=== PATIENT | male | born 1945 | race Caucasian/White ===

== ENCOUNTER → 2017-09-27 09:50 | Outpatient (CLI) | payer MEDICARE, OTHER, SELFPAY ==
[2017-09-27 11:32] LABS: Cholesterol 152 mg/dL (140-199); HDL Cholesterol 64 mg/dL (40-60); LDL Cholesterol Calculated 79 mg/dL (<100); Triglycerides 47 mg/dL (35-150)
== END ==
PROVIDERS: PCP Internal Medicine; Visit Provider Internal Medicine
DX: K21.9 Gastro-esophageal reflux disease without esophagitis (principal); R97.20 Elevated prostate specific antigen [PSA]; G47.33 Obstructive sleep apnea (adult) (pediatric)
CPT/HCPCS: 36415; 80061; 84153

== ENCOUNTER → 2018-07-31 17:30 | Outpatient (CLI) | payer MEDICARE, OTHER, SELFPAY ==
[2018-07-31 18:32] LABS: Hematocrit 46.9 % (41-53); Hemoglobin 15.5 g/dL (13.5-17.5); Mean Corpuscular HGB Conc 33.1 % (30-36); Mean Corpuscular Hemoglobin 29.3 PG (26-34); Mean Corpuscular Volume 88.5 fL (80-100); Platelet Count 206 X10^3/uL (150-400); Red Blood Cell Count 5.31 X10^6/uL (4.5-5.9); Red Cell Distribution Width 14.3 % (11.6-14.8); White Blood Cell Count 7.4 X10^3/uL (4.5-11.0)
[2018-07-31 19:39] LABS: Prostate Specific Antigen 5.27 ng/mL (0.10-4.00)
[2018-08-02 15:09] LABS: Alanine Aminotransferase 50 IU/L (21-72); Albumin 4.3 g/dL (3.5-5.0); Albumin Globulin Ratio 1.5 (1.0-2.8); Alkaline Phosphatase 67 U/L (38-126); Aspartate Aminotransferase 45 IU/L (17-59); BUN Creatinine Ratio 23.8 (6-22); Bilirubin Total 1.6 mg/dL (0.2-1.3); Blood Urea Nitrogen 19 mg/dL (9-20); Calcium 9.5 mg/dL (8.4-10.2); Carbon Dioxide 18 mmol/L (22-32); Chloride 108 mmol/L (98-107); Estimated Glomerular Filt Rate > 60.0 mL/min (>60); Globulin 2.9 g/dL (1.7-4.1); Glucose 86 mg/dL (80-110); HEMOLYSIS < 15 (0-50); Potassium 4.4 mmol/L (3.4-5.1); Sodium 139 mmol/L (137-145); Total Protein 7.2 g/dL (6.3-8.2)
== END ==
PROVIDERS: PCP Internal Medicine; Visit Provider Internal Medicine
DX: K21.9 Gastro-esophageal reflux disease without esophagitis (principal); M19.021 Primary osteoarthritis, right elbow; R97.20 Elevated prostate specific antigen [PSA]
CPT/HCPCS: 36415; 80053; 84153; 85027

== ENCOUNTER 2018-09-08 10:19 | Emergency (ER) | payer MEDICARE, OTHER, SELFPAY ==
[2018-09-08 11:02] VITALS: BP 176/92; PULSE 52; RESP 24; TEMP 36.6; O2SAT 100; BMI 293.7
[2018-09-08 11:24] LABS: Add Manual Diff / Slide Review NO; Basophils Absolute Auto 0 /uL (0-100); Basophils Percent Auto 0.4 % (0-2); Eosinophils Absolute Auto 100 /uL (0-450); Eosinophils Percent Auto 0.7 % (2-4); Hematocrit 49.3 % (41-53); Hemoglobin 16.6 g/dL (13.5-17.5); Lymphocytes Absolute Auto 1200 /uL (1100-4500); Lymphocytes Percent Auto 9.1 % (25-40); Mean Corpuscular HGB Conc 33.6 % (30-36); Mean Corpuscular Hemoglobin 29.7 PG (26-34); Mean Corpuscular Volume 88.3 fL (80-100); Monocytes Absolute Auto 700 /uL (0-900); Monocytes Percent Auto 5.2 % (3-14); Neutrophils Absolute Auto 11100 /uL (1500-7000); Neutrophils Percent Auto 84.6 % (50-75); Platelet Count 228 X10^3/uL (150-400); Red Blood Cell Count 5.59 X10^6/uL (4.5-5.9); Red Cell Distribution Width 14.3 % (11.6-14.8); White Blood Cell Count 13.1 X10^3/uL (4.5-11.0)
[2018-09-08 11:29] LABS: Bacteria Urine None Seen; RBC Urine None Seen (0-5/HPF); WBC Urine None Seen (0-5/HPF)
[2018-09-08 11:30] LABS: Alanine Aminotransferase 40 IU/L (21-72); Albumin 4.5 g/dL (3.5-5.0); Albumin Globulin Ratio 1.4 (1.0-2.8); Alkaline Phosphatase 81 U/L (38-126); Aspartate Aminotransferase 34 IU/L (17-59); BUN Creatinine Ratio 31.4 (6-22); Bilirubin Total 1.4 mg/dL (0.2-1.3); Blood Urea Nitrogen 22 mg/dL (9-20); Calcium 9.5 mg/dL (8.4-10.2); Carbon Dioxide 24 mmol/L (22-32); Chloride 104 mmol/L (98-107); Estimated Glomerular Filt Rate > 60.0 mL/min (>60); Globulin 3.3 g/dL (1.7-4.1); Glucose 148 mg/dL (80-110); HEMOLYSIS < 15 (0-50); Lipase 229 U/L (23-300); Potassium 4.9 mmol/L (3.4-5.1); Sodium 138 mmol/L (137-145); Total Protein 7.8 g/dL (6.3-8.2)
[2018-09-08 11:31] LABS: Appearance Urine UA CLOUDY; Bilirubin Urine UA NEGATIVE (NEGATIVE); Color Urine UA YELLOW; Glucose Urine UA NEGATIVE (Negative); Ketones Urine UA TRACE (NEGATIVE); Leukocyte Esterase Urine UA NEGATIVE (NEGATIVE); Nitrite Urine UA NEGATIVE (Negative); Occult Blood Urine UA NEGATIVE (Negative); Protein Urine UA NEGATIVE (Negative); Specific Gravity Urine UA 1.025 (1.000-1.035); Urobilinogen Urine UA 0.2 E.U./dL (0.2); pH Urine UA 7.5 (4.5-8.0)
[2018-09-08 11:43] LABS: Amorphous Sediment Urine 3+; Culture Indicated Urine Cult Not Indicated
--- NOTE | 2018-09-08 12:16 | DI.US.S_ITS ---
PROCEDURE: US ABDOMEN LIMITED INDICATIONS: LEFT GROIN PAIN TECHNIQUE: Real-time focused scanning was performed of the abdomen, with image documentation. COMPARISON: None. FINDINGS: Left inguinal hernia measuring 52 x 9 x 17 mm is present, containing a bowel loop. The hernia spontaneously reduces. IMPRESSION: Reducible bowel containing left inguinal hernia. Dictated by: Ramya Stroud M.D. on 09/08/2018 at 13:46 Approved by: Ramya Stroud M.D. on 09/08/2018 at 13:47
[2018-09-08] MEDS: SODIUM CHLORIDE 0.9% 1,000 ML 1000 ML IV (12:23)
[2018-09-08] MEDS: KETOROLAC 60 MG/2 ML VIAL 15 MG IV (12:26)
[2018-09-08] MEDS: ONDANSETRON 4 MG/2 ML INJ IV (12:26)
--- NOTE | 2018-09-08 12:54 | ED.ABDPAIN ---
HPI - Abdominal Pain <ANDRÉS Allen - Last Filed: 09/08/18 14:28> General Chief Complaint: Abdominal Pain Stated Complaint: Abd pain Time Seen by Provider: 09/08/18 12:11 Source: patient Mode of arrival: ambulatory Limitations: no limitations History of Present Illness HPI narrative: pt says he had sudden onset L groin pain about 0700 this am and it has not gone away, denies any other issues, trauma, swelling/bulge, describes the pain as sharp/stabbing, never had anything like this before, hx of kidney stones but this feels different than his stones complaint: other (groin) Onset (ago): day(s) (1) Pain Consistency: constant Severity: moderate Quality: stabbing and sharp Radiation: none Migration to: no migration Relieving factors: nothing Exacerbating factors: nothing Associated symptoms: denies other symptoms Related Data Home Medications Medication Instructions Recorded Confirmed Calcium Carbonate/Vitamin D #0 01/09/11 08/02/18 (#CALCIUM) naproxen sodium [Aleve] 220 mg PO Q DAY #0 01/09/11 08/02/18 tamsulosin [Flomax] 0.8 mg PO QDAY #0 12/15/11 08/02/18 tadalafil 5 mg tablet 5 mg PO ONCE 10/02/17 08/02/18 Previous Rx's Medication Instructions Recorded hydrocodone-acetaminophen [Amenia] 1 tab PO Q6HP PRN #10 tab 08/10/17 ondansetron [Zofran ODT] 4 mg SUBLINGUAL Q6HP PRN #10 odt 08/10/17 docusate sodium [Colace] 100 mg PO BID #14 cap 09/08/18 Allergies Allergy/AdvReac Type Severity Reaction Status Date / Time No Known Drug Allergies Allergy Verified 09/08/18 11:02 Review of Systems <ANDRÉS Allen - Last Filed: 09/08/18 14:28> Constitutional Reports as per HPI and Reports system reviewed and no additional complaints, except as docu Cardiovascular Denies chest pain and Denies dyspnea Respiratory Denies dyspnea Gastrointestinal Gastrointestinal: Reports as per HPI, Reports abdominal pain, Denies melena, Denies hematochezia, Denies constipation, Denies diarrhea, Denies nausea and Denies vomiting Genitourinary Reports as per HPI, Denies hematuria, Denies oliguria, Denies difficulty urinating, Denies genital lesions, Denies genital pain, Denies dysuria, Denies flank pain, Denies penile discharge, Denies scrotal swelling, Denies testicular mass, Denies testicular pain, Denies urinary frequency, Denies urinary hesitancy and Denies urinary urgency Musculoskeletal Denies back pain PFSH <ANDRÉS Allen - Last Filed: 09/08/18 14:28> Medical History Osteoarthritis of right elbow (Chronic) Gastroesophageal reflux disease (Chronic 12/30/10) History of renal calculi (Inactive 12/30/10) Obstructive sleep apnea syndrome (Chronic 12/30/10) Elevated prostate specific antigen (PSA) (Chronic 02/01/16) Social History Smoking Status: Former smoker Social History Smoking Status: Former smoker Exam <ANDRÉS Allen - Last Filed: 09/08/18 14:28> Initial Vital Signs Initial Vital Signs: Vital Signs Temperature 97.9 F 09/08/18 11:02 Pulse Rate 52 L 09/08/18 11:02 Respiratory Rate 24 09/08/18 11:02 Blood Pressure 176/92 H 09/08/18 11:02 Pulse Oximetry 100 09/08/18 11:02 Const General: cooperative, healthy appearing, comfortable and well developed Nutritional Appearance: average body habitus Orientation: alert, awake and oriented x3 Resp Effort & Inspection: normal respiratory effort and able to speak in complete sentences Auscultation: clear to auscultation bilaterally Cardio Rate: regular rate Rhythm: regular rhythm Heart Sounds: S1 normal and S2 normal GI Inspection: normal to inspection Palpation: soft, No hernia, No mass and tender (L groin area, nurse in room during exam) Auscultation: normal bowel sounds General: bimanual renal exam normal bilaterally, bladder normal to palpation and No CVA tenderness External: normal external exam, circumcised, no erythema, no inguinal lymphadenopathy, no scrotal swelling and nontender Penis: normal penis and no swelling Meatus: meatus normal and no meatla discharge Scrotum: scrotum normal, no inguinal hernias, no masses and no scrotal swelling Testes: normal, not enlarged, no epidiymal masses, no epidiymal tenderness, no masses, no testicular mass, no testicular swelling and no testicular tenderness Back/Spine/Pelvis Cervical Spine: cervical ROM normal Thoracic/Lumbar Spine: thoraco-lumbar ROM limited Skin General: no rashes or lesions noted, elasticity normal, turgor normal and warm Neuro General: alert, awake and oriented x3 Cranial Nerves: CN's II-XI intact bilaterally Cognition: normal cognition Speech: speech normal Motor: muscle tone normal throughout Sensory Exam: no sensory deficits noted Psych Appearance: grossly normal and well kempt Mental Status: mental status grossly normal Speech and Movement: speech and movement normal Mood: congruent mood Affect: normal affect Attitude: cooperative Thought Process: normal Thought Content: normal Judgment: judgment good <Ame Lee DO - Last Filed: 09/09/18 09:17> Initial Vital Signs Initial Vital Signs: Vital Signs Temperature 97.9 F 09/08/18 11:02 Pulse Rate 52 L 09/08/18 11:02 Respiratory Rate 24 09/08/18 11:02 Blood Pressure 176/92 H 09/08/18 11:02 Pulse Oximetry 100 09/08/18 11:02 Course <ANDRÉS Allen - Last Filed: 09/08/18 14:28> Course Narrative: 1330 US tech reporting pt has small reduceable L inguina hernia, pushes it in and it pushes right back out, no incarcerated, no bowel involvement, verbal order to cancel scrotum US [address] Lopez, pt's case discussed and agreed if hernia is reduceable then pt could be dc home and f/u with him this week 1420 results and dc plan discussed, pt reassessed and no palpable hernia, no bulge/mass Orders Ordered: Discontinued Medications Sodium Chloride (Normal Saline 0.9%) 1,000 mls @ 150 mls/hr IV CONT SENG Last Admin: 09/08/18 12:20 Dose: Not Given Sodium Chloride (Normal Saline 0.9%) 1,000 mls @ 1,000 mls/hr IV BOLUS ONE Stop: 09/08/18 13:17 Last Infusion: 09/08/18 13:35 Dose: 0 mls/hr Admin: 09/08/18 12:23 Dose: 1,000 mls/hr Ketorolac Tromethamine (Toradol) 15 mg IV NOW ONE Stop: 09/08/18 12:17 Last Admin: 09/08/18 12:26 Dose: 15 mg Ondansetron HCl (Zofran) 4 mg IV NOW ONE Stop: 09/08/18 12:17 Last Admin: 09/08/18 12:26 Dose: 4 mg Vital Signs - 8 hr 09/08/18 11:02 Temperature 97.9 F Pulse Rate 52 L Respiratory Rate 24 Blood Pressure 176/92 H Pulse Oximetry 100 <Ame Lee DO - Last Filed: 09/09/18 09:17> Orders Ordered: Discontinued Medications Sodium Chloride (Normal Saline 0.9%) 1,000 mls @ 150 mls/hr IV CONT SENG Last Admin: 09/08/18 12:20 Dose: Not Given Sodium Chloride (Normal Saline 0.9%) 1,000 mls @ 1,000 mls/hr IV BOLUS ONE Stop: 09/08/18 13:17 Last Infusion: 09/08/18 13:35 Dose: 0 mls/hr Admin: 09/08/18 12:23 Dose: 1,000 mls/hr Ketorolac Tromethamine (Toradol) 15 mg IV NOW ONE Stop: 09/08/18 12:17 Last Admin: 09/08/18 12:26 Dose: 15 mg Ondansetron HCl (Zofran) 4 mg IV NOW ONE Stop: 09/08/18 12:17 Last Admin: 09/08/18 12:26 Dose: 4 mg Vital Signs - 8 hr 09/08/18 11:02 Temperature 97.9 F Pulse Rate 52 L Respiratory Rate 24 Blood Pressure 176/92 H Pulse Oximetry 100 MDM - Abdominal Pain <ANDRÉS Allen - Last Filed: 09/08/18 14:28> Differential Diagnosis Differential diagnosis: Likely abdominal pain, calculus of kidney and other (inguinal hernia, teste torsion, uti, kidney stone, lymphadentitis, epidydimitis, mass) Lab Data Attestation: I reviewed the patient's lab results. Result diagrams: 09/08/18 11:08 09/08/18 11:08 Lab Results 09/08/18 09/08/18 09/08/18 Range/Units 11:08 11:08 11:08 WBC 13.1 H (4.5-11.0) X10^3/uL RBC 5.59 (4.5-5.9) X10^6/uL Hgb 16.6 (13.5-17.5) g/dL Hct 49.3 (41-53) % MCV 88.3 (80-100) fL MCH 29.7 (26-34) PG MCHC 33.6 (30-36) % RDW 14.3 (11.6-14.8) % Plt Count 228 (150-400) X10^3/uL Neut % (Auto) 84.6 H (50-75) % Lymph % (Auto) 9.1 L (25-40) % [place] % (Auto) 5.2 (3-14) % Eos % (Auto) 0.7 L (2-4) % Baso % (Auto) 0.4 (0-2) % Neut # (Auto) 08251 H (9968-5376) /uL Lymph # (Auto) 1200 (1866-2513) /uL [place] # (Auto) 700 (0-900) /uL Eos # (Auto) 100 (0-450) /uL Baso # (Auto) 0 (0-100) /uL Sodium 138 (137-145) mmol/L Potassium 4.9 (3.4-5.1) mmol/L Chloride 104 (98-107) mmol/L Carbon Dioxide 24 (22-32) mmol/L BUN 22 H (9-20) mg/dL Creatinine 0.70 (0.66-1.25) mg/dL Estimated GFR > 60.0 (>60) mL/min BUN/Creatinine Ratio 31.4 H (6-22) Glucose 148 H (80-110) mg/dL Calcium 9.5 (8.4-10.2) mg/dL Total Bilirubin 1.4 H (0.2-1.3) mg/dL AST 34 (17-59) IU/L ALT 40 (21-72) IU/L Alkaline Phosphatase 81 (38-126) U/L Total Protein 7.8 (6.3-8.2) g/dL Albumin 4.5 (3.5-5.0) g/dL Globulin 3.3 (1.7-4.1) g/dL Albumin/Globulin Ratio 1.4 (1.0-2.8) Amylase 74 (30-110) U/L Lipase 229 (23-300) U/L Urine Color Urine Appearance Urine pH (4.5-8.0) Ur Specific [place] (1.000-1.035) Urine Protein (Negative) Urine Glucose (UA) (Negative) g/dL Urine Ketones (NEGATIVE) Urine Occult Blood (Negative) Urine Nitrate (Negative) Urine Bilirubin (NEGATIVE) Urine Urobilinogen (0.2) E.U./dL Ur Leukocyte Esterase (NEGATIVE) Urine RBC (0-5/HPF) Urine WBC (0-5/HPF) Amorphous Sediment Urine Bacteria (None) Ur Culture Indicated? 09/08/18 Range/Units 11:25 WBC (4.5-11.0) X10^3/uL RBC (4.5-5.9) X10^6/uL Hgb (13.5-17.5) g/dL Hct (41-53) % MCV (80-100) fL MCH (26-34) PG MCHC (30-36) % RDW (11.6-14.8) % Plt Count (150-400) X10^3/uL Neut % (Auto) (50-75) % Lymph % (Auto) (25-40) % [place] % (Auto) (3-14) % Eos % (Auto) (2-4) % Baso % (Auto) (0-2) % Neut # (Auto) (9618-0141) /uL Lymph # (Auto) (9915-1520) /uL [place] # (Auto) (0-900) /uL Eos # (Auto) (0-450) /uL Baso # (Auto) (0-100) /uL Sodium (137-145) mmol/L Potassium (3.4-5.1) mmol/L Chloride (98-107) mmol/L Carbon Dioxide (22-32) mmol/L BUN (9-20) mg/dL Creatinine (0.66-1.25) mg/dL Estimated GFR (>60) mL/min BUN/Creatinine Ratio (6-22) Glucose (80-110) mg/dL Calcium (8.4-10.2) mg/dL Total Bilirubin (0.2-1.3) mg/dL AST (17-59) IU/L ALT (21-72) IU/L Alkaline Phosphatase (38-126) U/L Total Protein (6.3-8.2) g/dL Albumin (3.5-5.0) g/dL Globulin (1.7-4.1) g/dL Albumin/Globulin Ratio (1.0-2.8) Amylase (30-110) U/L Lipase (23-300) U/L Urine Color Yellow Urine Appearance Cloudy Urine pH 7.5 (4.5-8.0) Ur Specific [place] 1.025 (1.000-1.035) Urine Protein Negative (Negative) Urine Glucose (UA) Negative (Negative) g/dL Urine Ketones Trace H (NEGATIVE) Urine Occult Blood Negative (Negative) Urine Nitrate Negative (Negative) Urine Bilirubin Negative (NEGATIVE) Urine Urobilinogen 0.2 (0.2) E.U./dL Ur Leukocyte Esterase Negative (NEGATIVE) Urine RBC None seen (0-5/HPF) Urine WBC None seen (0-5/HPF) Amorphous Sediment 3+ Urine Bacteria None seen (None) Ur Culture Indicated? Cult not indicated Imaging Data US Pelvic: Radiologist's impression: PROCEDURE: US ABDOMEN LIMITED INDICATIONS: LEFT GROIN PAIN TECHNIQUE: Real-time focused scanning was performed of the abdomen, with image documentation. COMPARISON: None. FINDINGS: Left inguinal hernia measuring 52 x 9 x 17 mm is present, containing a bowel loop. The hernia spontaneously reduces. IMPRESSION: Reducible bowel containing left inguinal hernia. Dictated by: Ramya Stroud M.D. on 09/08/2018 at 13:46 Approved by: Ramya Stroud M.D. on 09/08/2018 at 13:47 <Ame Lee DO - Last Filed: 09/09/18 09:17> Lab Data Lab Results 09/08/18 09/08/18 09/08/18 Range/Units 11:08 11:08 11:08 WBC 13.1 H (4.5-11.0) X10^3/uL RBC 5.59 (4.5-5.9) X10^6/uL Hgb 16.6 (13.5-17.5) g/dL Hct 49.3 (41-53) % MCV 88.3 (80-100) fL MCH 29.7 (26-34) PG MCHC 33.6 (30-36) % RDW 14.3 (11.6-14.8) % Plt Count 228 (150-400) X10^3/uL Neut % (Auto) 84.6 H (50-75) % Lymph % (Auto) 9.1 L (25-40) % [place] % (Auto) 5.2 (3-14) % Eos % (Auto) 0.7 L (2-4) % Baso % (Auto) 0.4 (0-2) % Neut # (Auto) 17170 H (8354-3770) /uL Lymph # (Auto) 1200 (1407-2647) /uL [place] # (Auto) 700 (0-900) /uL Eos # (Auto) 100 (0-450) /uL Baso # (Auto) 0 (0-100) /uL Sodium 138 (137-145) mmol/L Potassium 4.9 (3.4-5.1) mmol/L Chloride 104 (98-107) mmol/L Carbon Dioxide 24 (22-32) mmol/L BUN 22 H (9-20) mg/dL Creatinine 0.70 (0.66-1.25) mg/dL Estimated GFR > 60.0 (>60) mL/min BUN/Creatinine Ratio 31.4 H (6-22) Glucose 148 H (80-110) mg/dL Calcium 9.5 (8.4-10.2) mg/dL Total Bilirubin 1.4 H (0.2-1.3) mg/dL AST 34 (17-59) IU/L ALT 40 (21-72) IU/L Alkaline Phosphatase 81 (38-126) U/L Total Protein 7.8 (6.3-8.2) g/dL Albumin 4.5 (3.5-5.0) g/dL Globulin 3.3 (1.7-4.1) g/dL Albumin/Globulin Ratio 1.4 (1.0-2.8) Amylase 74 (30-110) U/L Lipase 229 (23-300) U/L Urine Color Urine Appearance Urine pH (4.5-8.0) Ur Specific [place] (1.000-1.035) Urine Protein (Negative) Urine Glucose (UA) (Negative) g/dL Urine Ketones (NEGATIVE) Urine Occult Blood (Negative) Urine Nitrate (Negative) Urine Bilirubin (NEGATIVE) Urine Urobilinogen (0.2) E.U./dL Ur Leukocyte Esterase (NEGATIVE) Urine RBC (0-5/HPF) Urine WBC (0-5/HPF) Amorphous Sediment Urine Bacteria (None) Ur Culture Indicated? 09/08/18 Range/Units 11:25 WBC (4.5-11.0) X10^3/uL RBC (4.5-5.9) X10^6/uL Hgb (13.5-17.5) g/dL Hct (41-53) % MCV (80-100) fL MCH (26-34) PG MCHC (30-36) % RDW (11.6-14.8) % Plt Count (150-400) X10^3/uL Neut % (Auto) (50-75) % Lymph % (Auto) (25-40) % [place] % (Auto) (3-14) % Eos % (Auto) (2-4) % Baso % (Auto) (0-2) % Neut # (Auto) (3066-7373) /uL Lymph # (Auto) (0918-8515) /uL [place] # (Auto) (0-900) /uL Eos # (Auto) (0-450) /uL Baso # (Auto) (0-100) /uL Sodium (137-145) mmol/L Potassium (3.4-5.1) mmol/L Chloride (98-107) mmol/L Carbon Dioxide (22-32) mmol/L BUN (9-20) mg/dL Creatinine (0.66-1.25) mg/dL Estimated GFR (>60) mL/min BUN/Creatinine Ratio (6-22) Glucose (80-110) mg/dL Calcium (8.4-10.2) mg/dL Total Bilirubin (0.2-1.3) mg/dL AST (17-59) IU/L ALT (21-72) IU/L Alkaline Phosphatase (38-126) U/L Total Protein (6.3-8.2) g/dL Albumin (3.5-5.0) g/dL Globulin (1.7-4.1) g/dL Albumin/Globulin Ratio (1.0-2.8) Amylase (30-110) U/L Lipase (23-300) U/L Urine Color Yellow Urine Appearance Cloudy Urine pH 7.5 (4.5-8.0) Ur Specific [place] 1.025 (1.000-1.035) Urine Protein Negative (Negative) Urine Glucose (UA) Negative (Negative) g/dL Urine Ketones Trace H (NEGATIVE) Urine Occult Blood Negative (Negative) Urine Nitrate Negative (Negative) Urine Bilirubin Negative (NEGATIVE) Urine Urobilinogen 0.2 (0.2) E.U./dL Ur Leukocyte Esterase Negative (NEGATIVE) Urine RBC None seen (0-5/HPF) Urine WBC None seen (0-5/HPF) Amorphous Sediment 3+ Urine Bacteria None seen (None) Ur Culture Indicated? Cult not indicated Discharge Plan Departure Patient Disposition: Home Clinical Impression: Inguinal hernia Qualifiers: Obstruction and gangrene presence: without obstruction or gangrene Laterality: unilateral Recurrence: not specified as recurrent Qualified Code(s): K40.90 - Unilateral inguinal hernia, without obstruction or gangrene, not specified as recurrent Discharge Date/Time: 09/08/18 14:39 Interventions: ED Discharge Assessment Last Done: 09/08/18 14:39 Instructions: DI for Groin Hernia Activity Restrictions/Additional Instructions: no heavy lifting, try to take it easy this week, ice to area for pain/swelling, over the counter motrin/tylenol as needed for pain, if bulge/mass appears, any change in bowel habits, vomiting or increased pain then see surgery sooner or return to ER Prescriptions: New docusate sodium [Colace] 100 mg capsule 100 mg PO BID Qty: 14 RF: 0 No Action Calcium Carbonate/Vitamin D (#CALCIUM) Qty: 0 RF: 0 naproxen sodium [Aleve] 220 MG tablet 220 mg PO Q DAY Qty: 0 RF: 0 tamsulosin [Flomax] 0.4 MG capsule,extended release 24hr 0.8 mg PO QDAY Qty: 0 RF: 0 hydrocodone-acetaminophen [Amenia] 5 MG/325 MG tablet 1 tab PO Q6HP PRNQty: 10 RF: 0 ondansetron [Zofran ODT] 4 MG tablet,disintegrating 4 mg Sublingual Q6HP PRNQty: 10 RF: 0 tadalafil [Cialis] 5 mg tablet 5 mg PO ONCE RF: 0 Referrals: Gurinder Muse MD [Physician] - (follow up this week with surgery, call Sunday morning to make apppointment) Kavin Seymour MD [Primary Care Provider] - <Ame Lee DO - Last Filed: 09/09/18 09:17> Cosign ED Attending Flores Attestation: I was immediately available in the department for consultation. Documentation has been reviewed. I agree with assessment and plan.
--- NOTE | 2018-09-08 13:00 | ED_ITS ---
HPI - Abdominal Pain <ANDRÉS Allen - Last Filed: 09/08/18 14:28> General Chief Complaint: Abdominal Pain Stated Complaint: Abd pain Time Seen by Provider: 09/08/18 12:11 Source: patient Mode of arrival: ambulatory Limitations: no limitations History of Present Illness HPI narrative: pt says he had sudden onset L groin pain about 0700 this am and it has not gone away, denies any other issues, trauma, swelling/bulge, describes the pain as sharp/stabbing, never had anything like this before, hx of kidney stones but this feels different than his stones complaint: other (groin) Onset (ago): day(s) (1) Pain Consistency: constant Severity: moderate Quality: stabbing and sharp Radiation: none Migration to: no migration Relieving factors: nothing Exacerbating factors: nothing Associated symptoms: denies other symptoms Related Data Home Medications Medication Instructions Recorded Confirmed Calcium Carbonate/Vitamin D #0 01/09/11 08/02/18 (#CALCIUM) naproxen sodium [Aleve] 220 mg PO Q DAY #0 01/09/11 08/02/18 tamsulosin [Flomax] 0.8 mg PO QDAY #0 12/15/11 08/02/18 tadalafil 5 mg tablet 5 mg PO ONCE 10/02/17 08/02/18 Previous Rx's Medication Instructions Recorded hydrocodone-acetaminophen [Ghent] 1 tab PO Q6HP PRN #10 tab 08/10/17 ondansetron [Zofran ODT] 4 mg SUBLINGUAL Q6HP PRN #10 odt 08/10/17 docusate sodium [Colace] 100 mg PO BID #14 cap 09/08/18 Allergies Allergy/AdvReac Type Severity Reaction Status Date / Time No Known Drug Allergies Allergy Verified 09/08/18 11:02 Review of Systems <ANDRÉS Allen - Last Filed: 09/08/18 14:28> Constitutional Reports as per HPI and Reports system reviewed and no additional complaints, except as docu Cardiovascular Denies chest pain and Denies dyspnea Respiratory Denies dyspnea Gastrointestinal Gastrointestinal: Reports as per HPI, Reports abdominal pain, Denies melena, Denies hematochezia, Denies constipation, Denies diarrhea, Denies nausea and Denies vomiting Genitourinary Reports as per HPI, Denies hematuria, Denies oliguria, Denies difficulty urinating, Denies genital lesions, Denies genital pain, Denies dysuria, Denies flank pain, Denies penile discharge, Denies scrotal swelling, Denies testicular mass, Denies testicular pain, Denies urinary frequency, Denies urinary hesitancy and Denies urinary urgency Musculoskeletal Denies back pain PFSH <ANDRÉS Allen - Last Filed: 09/08/18 14:28> Medical History Osteoarthritis of right elbow (Chronic) Gastroesophageal reflux disease (Chronic 12/30/10) History of renal calculi (Inactive 12/30/10) Obstructive sleep apnea syndrome (Chronic 12/30/10) Elevated prostate specific antigen (PSA) (Chronic 02/01/16) Social History Smoking Status: Former smoker Social History Smoking Status: Former smoker Exam <ANDRÉS Allen - Last Filed: 09/08/18 14:28> Initial Vital Signs Initial Vital Signs: Vital Signs Temperature 97.9 F 09/08/18 11:02 Pulse Rate 52 L 09/08/18 11:02 Respiratory Rate 24 09/08/18 11:02 Blood Pressure 176/92 H 09/08/18 11:02 Pulse Oximetry 100 09/08/18 11:02 Const General: cooperative, healthy appearing, comfortable and well developed Nutritional Appearance: average body habitus Orientation: alert, awake and oriented x3 Resp Effort & Inspection: normal respiratory effort and able to speak in complete sentences Auscultation: clear to auscultation bilaterally Cardio Rate: regular rate Rhythm: regular rhythm Heart Sounds: S1 normal and S2 normal GI Inspection: normal to inspection Palpation: soft, No hernia, No mass and tender (L groin area, nurse in room during exam) Auscultation: normal bowel sounds General: bimanual renal exam normal bilaterally, bladder normal to palpation and No CVA tenderness External: normal external exam, circumcised, no erythema, no inguinal lymphadenopathy, no scrotal swelling and nontender Penis: normal penis and no swelling Meatus: meatus normal and no meatla discharge Scrotum: scrotum normal, no inguinal hernias, no masses and no scrotal swelling Testes: normal, not enlarged, no epidiymal masses, no epidiymal tenderness, no masses, no testicular mass, no testicular swelling and no testicular tenderness Back/Spine/Pelvis Cervical Spine: cervical ROM normal Thoracic/Lumbar Spine: thoraco-lumbar ROM limited Skin General: no rashes or lesions noted, elasticity normal, turgor normal and warm Neuro General: alert, awake and oriented x3 Cranial Nerves: CN's II-XI intact bilaterally Cognition: normal cognition Speech: speech normal Motor: muscle tone normal throughout Sensory Exam: no sensory deficits noted Psych Appearance: grossly normal and well kempt Mental Status: mental status grossly normal Speech and Movement: speech and movement normal Mood: congruent mood Affect: normal affect Attitude: cooperative Thought Process: normal Thought Content: normal Judgment: judgment good <Ame Lee DO - Last Filed: 09/09/18 09:17> Initial Vital Signs Initial Vital Signs: Vital Signs Temperature 97.9 F 09/08/18 11:02 Pulse Rate 52 L 09/08/18 11:02 Respiratory Rate 24 09/08/18 11:02 Blood Pressure 176/92 H 09/08/18 11:02 Pulse Oximetry 100 09/08/18 11:02 Course <ANDRÉS Allen - Last Filed: 09/08/18 14:28> Course Narrative: 1330 US tech reporting pt has small reduceable L inguina hernia, pushes it in and it pushes right back out, no incarcerated, no bowel involvement, verbal order to cancel scrotum US [address] Lopez, pt's case discussed and agreed if hernia is reduceable then pt could be dc home and f/u with him this week 1420 results and dc plan discussed, pt reassessed and no palpable hernia, no bulge/mass Orders Ordered: Discontinued Medications Sodium Chloride (Normal Saline 0.9%) 1,000 mls @ 150 mls/hr IV CONT SENG Last Admin: 09/08/18 12:20 Dose: Not Given Sodium Chloride (Normal Saline 0.9%) 1,000 mls @ 1,000 mls/hr IV BOLUS ONE Stop: 09/08/18 13:17 Last Infusion: 09/08/18 13:35 Dose: 0 mls/hr Admin: 09/08/18 12:23 Dose: 1,000 mls/hr Ketorolac Tromethamine (Toradol) 15 mg IV NOW ONE Stop: 09/08/18 12:17 Last Admin: 09/08/18 12:26 Dose: 15 mg Ondansetron HCl (Zofran) 4 mg IV NOW ONE Stop: 09/08/18 12:17 Last Admin: 09/08/18 12:26 Dose: 4 mg Vital Signs - 8 hr 09/08/18 11:02 Temperature 97.9 F Pulse Rate 52 L Respiratory Rate 24 Blood Pressure 176/92 H Pulse Oximetry 100 <Ame Lee DO - Last Filed: 09/09/18 09:17> Orders Ordered: Discontinued Medications Sodium Chloride (Normal Saline 0.9%) 1,000 mls @ 150 mls/hr IV CONT SENG Last Admin: 09/08/18 12:20 Dose: Not Given Sodium Chloride (Normal Saline 0.9%) 1,000 mls @ 1,000 mls/hr IV BOLUS ONE Stop: 09/08/18 13:17 Last Infusion: 09/08/18 13:35 Dose: 0 mls/hr Admin: 09/08/18 12:23 Dose: 1,000 mls/hr Ketorolac Tromethamine (Toradol) 15 mg IV NOW ONE Stop: 09/08/18 12:17 Last Admin: 09/08/18 12:26 Dose: 15 mg Ondansetron HCl (Zofran) 4 mg IV NOW ONE Stop: 09/08/18 12:17 Last Admin: 09/08/18 12:26 Dose: 4 mg Vital Signs - 8 hr 09/08/18 11:02 Temperature 97.9 F Pulse Rate 52 L Respiratory Rate 24 Blood Pressure 176/92 H Pulse Oximetry 100 MDM - Abdominal Pain <ANDRÉS Allen - Last Filed: 09/08/18 14:28> Differential Diagnosis Differential diagnosis: Likely abdominal pain, calculus of kidney and other (inguinal hernia, teste torsion, uti, kidney stone, lymphadentitis, epidydimitis, mass) Lab Data Attestation: I reviewed the patient's lab results. Result diagrams: 09/08/18 11:08 09/08/18 11:08 Lab Results 09/08/18 09/08/18 09/08/18 Range/Units 11:08 11:08 11:08 WBC 13.1 H (4.5-11.0) X10^3/uL RBC 5.59 (4.5-5.9) X10^6/uL Hgb 16.6 (13.5-17.5) g/dL Hct 49.3 (41-53) % MCV 88.3 (80-100) fL MCH 29.7 (26-34) PG MCHC 33.6 (30-36) % RDW 14.3 (11.6-14.8) % Plt Count 228 (150-400) X10^3/uL Neut % (Auto) 84.6 H (50-75) % Lymph % (Auto) 9.1 L (25-40) % Kern % (Auto) 5.2 (3-14) % Eos % (Auto) 0.7 L (2-4) % Baso % (Auto) 0.4 (0-2) % Neut # (Auto) 32957 H (4544-8083) /uL Lymph # (Auto) 1200 (9277-3610) /uL Kern # (Auto) 700 (0-900) /uL Eos # (Auto) 100 (0-450) /uL Baso # (Auto) 0 (0-100) /uL Sodium 138 (137-145) mmol/L Potassium 4.9 (3.4-5.1) mmol/L Chloride 104 (98-107) mmol/L Carbon Dioxide 24 (22-32) mmol/L BUN 22 H (9-20) mg/dL Creatinine 0.70 (0.66-1.25) mg/dL Estimated GFR > 60.0 (>60) mL/min BUN/Creatinine Ratio 31.4 H (6-22) Glucose 148 H (80-110) mg/dL Calcium 9.5 (8.4-10.2) mg/dL Total Bilirubin 1.4 H (0.2-1.3) mg/dL AST 34 (17-59) IU/L ALT 40 (21-72) IU/L Alkaline Phosphatase 81 (38-126) U/L Total Protein 7.8 (6.3-8.2) g/dL Albumin 4.5 (3.5-5.0) g/dL Globulin 3.3 (1.7-4.1) g/dL Albumin/Globulin Ratio 1.4 (1.0-2.8) Amylase 74 (30-110) U/L Lipase 229 (23-300) U/L Urine Color Urine Appearance Urine pH (4.5-8.0) Ur Specific [place] (1.000-1.035) Urine Protein (Negative) Urine Glucose (UA) (Negative) g/dL Urine Ketones (NEGATIVE) Urine Occult Blood (Negative) Urine Nitrate (Negative) Urine Bilirubin (NEGATIVE) Urine Urobilinogen (0.2) E.U./dL Ur Leukocyte Esterase (NEGATIVE) Urine RBC (0-5/HPF) Urine WBC (0-5/HPF) Amorphous Sediment Urine Bacteria (None) Ur Culture Indicated? 09/08/18 Range/Units 11:25 WBC (4.5-11.0) X10^3/uL RBC (4.5-5.9) X10^6/uL Hgb (13.5-17.5) g/dL Hct (41-53) % MCV (80-100) fL MCH (26-34) PG MCHC (30-36) % RDW (11.6-14.8) % Plt Count (150-400) X10^3/uL Neut % (Auto) (50-75) % Lymph % (Auto) (25-40) % Kern % (Auto) (3-14) % Eos % (Auto) (2-4) % Baso % (Auto) (0-2) % Neut # (Auto) (1071-9572) /uL Lymph # (Auto) (2974-9898) /uL Kern # (Auto) (0-900) /uL Eos # (Auto) (0-450) /uL Baso # (Auto) (0-100) /uL Sodium (137-145) mmol/L Potassium (3.4-5.1) mmol/L Chloride (98-107) mmol/L Carbon Dioxide (22-32) mmol/L BUN (9-20) mg/dL Creatinine (0.66-1.25) mg/dL Estimated GFR (>60) mL/min BUN/Creatinine Ratio (6-22) Glucose (80-110) mg/dL Calcium (8.4-10.2) mg/dL Total Bilirubin (0.2-1.3) mg/dL AST (17-59) IU/L ALT (21-72) IU/L Alkaline Phosphatase (38-126) U/L Total Protein (6.3-8.2) g/dL Albumin (3.5-5.0) g/dL Globulin (1.7-4.1) g/dL Albumin/Globulin Ratio (1.0-2.8) Amylase (30-110) U/L Lipase (23-300) U/L Urine Color Yellow Urine Appearance Cloudy Urine pH 7.5 (4.5-8.0) Ur Specific [place] 1.025 (1.000-1.035) Urine Protein Negative (Negative) Urine Glucose (UA) Negative (Negative) g/dL Urine Ketones Trace H (NEGATIVE) Urine Occult Blood Negative (Negative) Urine Nitrate Negative (Negative) Urine Bilirubin Negative (NEGATIVE) Urine Urobilinogen 0.2 (0.2) E.U./dL Ur Leukocyte Esterase Negative (NEGATIVE) Urine RBC None seen (0-5/HPF) Urine WBC None seen (0-5/HPF) Amorphous Sediment 3+ Urine Bacteria None seen (None) Ur Culture Indicated? Cult not indicated Imaging Data US Pelvic: Radiologist's impression: PROCEDURE: US ABDOMEN LIMITED INDICATIONS: LEFT GROIN PAIN TECHNIQUE: Real-time focused scanning was performed of the abdomen, with image documentation. COMPARISON: None. FINDINGS: Left inguinal hernia measuring 52 x 9 x 17 mm is present, containing a bowel loop. The hernia spontaneously reduces. IMPRESSION: Reducible bowel containing left inguinal hernia. Dictated by: Ramya Stroud M.D. on 09/08/2018 at 13:46 Approved by: Ramya Stroud M.D. on 09/08/2018 at 13:47 <Ame Lee DO - Last Filed: 09/09/18 09:17> Lab Data Lab Results 09/08/18 09/08/18 09/08/18 Range/Units 11:08 11:08 11:08 WBC 13.1 H (4.5-11.0) X10^3/uL RBC 5.59 (4.5-5.9) X10^6/uL Hgb 16.6 (13.5-17.5) g/dL Hct 49.3 (41-53) % MCV 88.3 (80-100) fL MCH 29.7 (26-34) PG MCHC 33.6 (30-36) % RDW 14.3 (11.6-14.8) % Plt Count 228 (150-400) X10^3/uL Neut % (Auto) 84.6 H (50-75) % Lymph % (Auto) 9.1 L (25-40) % Kern % (Auto) 5.2 (3-14) % Eos % (Auto) 0.7 L (2-4) % Baso % (Auto) 0.4 (0-2) % Neut # (Auto) 95408 H (6492-9639) /uL Lymph # (Auto) 1200 (8818-4995) /uL Kern # (Auto) 700 (0-900) /uL Eos # (Auto) 100 (0-450) /uL Baso # (Auto) 0 (0-100) /uL Sodium 138 (137-145) mmol/L Potassium 4.9 (3.4-5.1) mmol/L Chloride 104 (98-107) mmol/L Carbon Dioxide 24 (22-32) mmol/L BUN 22 H (9-20) mg/dL Creatinine 0.70 (0.66-1.25) mg/dL Estimated GFR > 60.0 (>60) mL/min BUN/Creatinine Ratio 31.4 H (6-22) Glucose 148 H (80-110) mg/dL Calcium 9.5 (8.4-10.2) mg/dL Total Bilirubin 1.4 H (0.2-1.3) mg/dL AST 34 (17-59) IU/L ALT 40 (21-72) IU/L Alkaline Phosphatase 81 (38-126) U/L Total Protein 7.8 (6.3-8.2) g/dL Albumin 4.5 (3.5-5.0) g/dL Globulin 3.3 (1.7-4.1) g/dL Albumin/Globulin Ratio 1.4 (1.0-2.8) Amylase 74 (30-110) U/L Lipase 229 (23-300) U/L Urine Color Urine Appearance Urine pH (4.5-8.0) Ur Specific [place] (1.000-1.035) Urine Protein (Negative) Urine Glucose (UA) (Negative) g/dL Urine Ketones (NEGATIVE) Urine Occult Blood (Negative) Urine Nitrate (Negative) Urine Bilirubin (NEGATIVE) Urine Urobilinogen (0.2) E.U./dL Ur Leukocyte Esterase (NEGATIVE) Urine RBC (0-5/HPF) Urine WBC (0-5/HPF) Amorphous Sediment Urine Bacteria (None) Ur Culture Indicated? 09/08/18 Range/Units 11:25 WBC (4.5-11.0) X10^3/uL RBC (4.5-5.9) X10^6/uL Hgb (13.5-17.5) g/dL Hct (41-53) % MCV (80-100) fL MCH (26-34) PG MCHC (30-36) % RDW (11.6-14.8) % Plt Count (150-400) X10^3/uL Neut % (Auto) (50-75) % Lymph % (Auto) (25-40) % [place] % (Auto) (3-14) % Eos % (Auto) (2-4) % Baso % (Auto) (0-2) % Neut # (Auto) (7360-1292) /uL Lymph # (Auto) (8711-6047) /uL Kern # (Auto) (0-900) /uL Eos # (Auto) (0-450) /uL Baso # (Auto) (0-100) /uL Sodium (137-145) mmol/L Potassium (3.4-5.1) mmol/L Chloride (98-107) mmol/L Carbon Dioxide (22-32) mmol/L BUN (9-20) mg/dL Creatinine (0.66-1.25) mg/dL Estimated GFR (>60) mL/min BUN/Creatinine Ratio (6-22) Glucose (80-110) mg/dL Calcium (8.4-10.2) mg/dL Total Bilirubin (0.2-1.3) mg/dL AST (17-59) IU/L ALT (21-72) IU/L Alkaline Phosphatase (38-126) U/L Total Protein (6.3-8.2) g/dL Albumin (3.5-5.0) g/dL Globulin (1.7-4.1) g/dL Albumin/Globulin Ratio (1.0-2.8) Amylase (30-110) U/L Lipase (23-300) U/L Urine Color Yellow Urine Appearance Cloudy Urine pH 7.5 (4.5-8.0) Ur Specific [place] 1.025 (1.000-1.035) Urine Protein Negative (Negative) Urine Glucose (UA) Negative (Negative) g/dL Urine Ketones Trace H (NEGATIVE) Urine Occult Blood Negative (Negative) Urine Nitrate Negative (Negative) Urine Bilirubin Negative (NEGATIVE) Urine Urobilinogen 0.2 (0.2) E.U./dL Ur Leukocyte Esterase Negative (NEGATIVE) Urine RBC None seen (0-5/HPF) Urine WBC None seen (0-5/HPF) Amorphous Sediment 3+ Urine Bacteria None seen (None) Ur Culture Indicated? Cult not indicated Discharge Plan Departure Patient Disposition: Home Clinical Impression: Inguinal hernia Qualifiers: Obstruction and gangrene presence: without obstruction or gangrene Laterality: unilateral Recurrence: not specified as recurrent Qualified Code(s): K40.90 - Unilateral inguinal hernia, without obstruction or gangrene, not specified as recurrent Discharge Date/Time: 09/08/18 14:39 Interventions: ED Discharge Assessment Last Done: 09/08/18 14:39 Instructions: DI for Groin Hernia Activity Restrictions/Additional Instructions: no heavy lifting, try to take it easy this week, ice to area for pain/swelling, over the counter motrin/tylenol as needed for pain, if bulge/mass appears, any change in bowel habits, vomiting or increased pain then see surgery sooner or return to ER Prescriptions: New docusate sodium [Colace] 100 mg capsule 100 mg PO BID Qty: 14 RF: 0 No Action Calcium Carbonate/Vitamin D (#CALCIUM) Qty: 0 RF: 0 naproxen sodium [Aleve] 220 MG tablet 220 mg PO Q DAY Qty: 0 RF: 0 tamsulosin [Flomax] 0.4 MG capsule,extended release 24hr 0.8 mg PO QDAY Qty: 0 RF: 0 hydrocodone-acetaminophen [Ghent] 5 MG/325 MG tablet 1 tab PO Q6HP PRNQty: 10 RF: 0 ondansetron [Zofran ODT] 4 MG tablet,disintegrating 4 mg Sublingual Q6HP PRNQty: 10 RF: 0 tadalafil [Cialis] 5 mg tablet 5 mg PO ONCE RF: 0 Referrals: Gurinder Muse MD [Physician] - (follow up this week with surgery, call Sunday morning to make apppointment) Kavin Seymour MD [Primary Care Provider] - <Ame Lee DO - Last Filed: 09/09/18 09:17> Cosign ED Attending Flores Attestation: I was immediately available in the department for consultation. Documentation has been reviewed. I agree with asses sment and plan.
[2018-09-08 13:06] LABS: Amylase 74 U/L (30-110)
[2018-09-08 14:26] VITALS: BP 132/90; PULSE 50; RESP 16; TEMP 36.4; O2SAT 96
== END 2018-09-08 14:39 | disposition home or self-care (01) ==
PROVIDERS: Emergency Medicine; Emergency Provider Nurse Practitioner; PCP Internal Medicine
DX: K40.90 Unilateral inguinal hernia, without obstruction or gangrene, not specified as recurrent (principal)
CPT/HCPCS: 36591; 76705; 80053; 81001; 82150; 83690; 85025; 96361; 96374; 96375; 99283; 99284; J1885; J2405

== ENCOUNTER → 2018-09-13 10:32 | Outpatient (CLI) | payer MEDICARE, OTHER, SELFPAY ==
--- NOTE | 2018-09-13 10:33 | DI.US.S_ITS ---
PROCEDURE: US ABDOMEN COMPLETE INDICATIONS: ELEV LFT'S TECHNIQUE: Real-time scanning was performed of the abdominal and retroperitoneal organs, with image documentation. COMPARISON: [facility], CT, KIDNEY/ URETER/BLADDER, 07/01/2013, 12:40. FINDINGS: Liver: Liver is normal in size and homogeneous in echotexture. Gallbladder: No gallstones identified. Normal gallbladder wall. No pericholecystic fluid. Negative sonographic Shine sign. Biliary ducts: Intrahepatic bile ducts are non-dilated. Extrahepatic bile duct caliber measures 5.9 mm. Normal is 6-7 mm or less in diameter, or 10 mm or less post-cholecystectomy. Pancreas: Visualized portions of the pancreas are sonographically normal. Spleen: Spleen is normal in size and homogeneous in echotexture. Kidneys: Kidneys are normal in size and echotexture. Right kidney measures 13.0 cm long; left kidney measures 13.1 cm long. No hydronephrosis or nephrolithiasis. No solid masses. Aorta: Visualized aorta is normal in caliber at less than 3 cm. Iliacs: Proximal common iliac arteries are normal in caliber at less than 2.5 cm. IVC: Intrahepatic inferior vena cava is patent. Miscellaneous: No free abdominal fluid. IMPRESSION: No source for elevated LFTs identified. Dictated by: Francisco DUKES Interpreted: Lynette Ferrell MD on 09/13/2018 at 11:43 Approved by: Lynette Ferrell M.D. on 09/16/2018 at 17:30
== END ==
PROVIDERS: PCP Internal Medicine; Visit Provider Surgery
DX: R94.5 Abnormal results of liver function studies (principal)
CPT/HCPCS: 76700

== ENCOUNTER → 2018-09-18 10:46 | Outpatient (CLI) | payer MEDICARE, OTHER, SELFPAY | PROVIDERS: PCP Internal Medicine; Visit Provider Surgery | DX: Z01.818 Encounter for other preprocedural examination (principal); K40.90 Unilateral inguinal hernia, without obstruction or gangrene, not specified as recurrent; E80.6 Other disorders of bilirubin metabolism | CPT/HCPCS: 93005; 99213 ==

== ENCOUNTER 2018-09-24 07:35 | Day surgery (SDC) | payer MEDICARE, OTHER, SELFPAY ==
[2018-09-19 07:40] VITALS: BMI 29.0
[2018-09-24] VITALS (8 sets, daily range): BP systolic 106–157; BP diastolic 69–95; PULSE 62–99; RESP 12–17; TEMP 36.2–36.8; O2SAT 95–98; BMI 29.0
--- NOTE | 2018-09-24 | PATH_ITS ---
[facility] Accession Number: [id number] . 01 Material submitted: . PART A: body - NERVE PART B: hernia - DIRECT HERNIA SAC PART C: hernia - INDIRECT HERNIA SAC PART D: body - CORD LIPOMA . 02 Diagnosis: A. Nerve, Procedure Not Specified: Portions of peripheral nerve with perineural fibrosis and otherwise no significant histomorphologic abnormality. . B. Direct Hernia Sac: Portions of fibroconnective and fibroadipose tissue, consistent with hernia sac. Negative for atypia and malignancy. . C. Indirect Hernia Sac: Portions of fibroconnective and fibromuscular tissue, consistent with hernia sac. Negative for atypia and malignancy. . D. Cord Lipoma: Portion of benign fibroadipose tissue, consistent with cord lipoma. . [facility]/09/26/2018 . 02 Electronically signed: . Fadumo Jarrell MD, Pathologist NPI- [id number] . 01 Gross description: . (A) Received in formalin, labeled nerve, is a gallagher-sutton rubbery nerve segment (length-2.1 cm, diameter-0.2 cm). Submitted intact in cassette A1. Note: The segment will be serially sectioned at embedding. (B) Received in formalin, labeled direct hernia sac, are multiple pieces of sutton-pink and sutton-yellow membranous and fatty tissue (6.0 x 5.8 x 3.2 cm in aggregate). Bacteriology Professor tissue submitted in cassette B1. (C) Received in formalin, labeled indirect hernia sac, are multiple pieces of sutton-pink and sutton-yellow membranous and fatty tissue (7.0 x 2.6 x 2.3 cm in aggregate). Bacteriology Professor tissue submitted in cassette C1. (D) Received in formalin, labeled cord lipoma, is a piece of sutton-yellow rubbery adipose tissue (3.0 x 2.5 x 1.0 cm) with a homogenous unremarkable cut surface. Bacteriology Professor tissue submitted in cassette D1. ([id number]) /MRV . 02 Pathologist provided ICD-10: K40.00 . 02 CPT . 682895, 850474, 210016, [id number] Performed at: 01 [facility] [address] [address], [place], [place] [id number] MD Neville Kline MD Phone: [phone] Performed at: 02 [facility] [address] [place], [place] [id number] MD Valentina Stahl MD Phone: [phone]
[2018-09-24] MEDS: LACTATED RINGERS 1,000 ML 84 ML IV ×3 (08:00→10:34)
--- NOTE | 2018-09-24 08:50 | PM.PREOP ---
Pre-operative Note Interval Note History & Physical reviewed/Exam performed by Physician: Yes Changes to H&P: No
[2018-09-24] MEDS: CEFAZOLIN 2 GM/100 ML FROZ.PIGGY IV (09:20)
[2018-09-24] MEDS: BUPIVACAINE 0.25% W/ EPI (PF) 10 ML VIAL INJ (09:53)
[2018-09-24] MEDS: OXYCODONE/ACETAMINOPHEN 5/325 TABLET 1 TAB PO (11:34)
--- NOTE | 2018-09-24 14:35 | PM.OP.1 ---
Operative Date/Time/Diagnoses Date of procedure: 09/24/18 Time of procedure: 12:35 Pre-op diagnosis: Left Inguinal Hernia Post-op diagnosis: same Procedure & Clinicians Procedure: Left Inguinal Hernia Repair with mesh Same procedure as scheduled: Yes Indications: 73yo M with a painful left groin hernia. Benefits, alternatives, and risks including bleeding, infection, damage to nearby structures, failure of procedure, and need for other procedures were discussed with the patient. Patient voiced understanding and wish to proceed. Surgeon: Jayleen Tabler Click Yes if Unassisted: Yes Anesthesia Type: General Operative Notes Findings: Pantaloon-type inguinal hernia with both direct and indirect defects. Closure Type: primary Specimen(s): other (1. nerve 2. cord lipoma 3. indirect hernia sac 4. direct hernia sac) Prosthetic devices, grafts, tissues, transplants, or devices: Atrium mesh Estimated Blood Loss (mL): 10 Blood products transfused: none Procedure in detail: Patient was taken to the operating room and placed on the operating table in supine position. The left groin was prepped and draped in the usual sterile fashion and a timeout performed with the team present. The pubic symphysis and anterior superior iliac spine were then marked. Local anesthesia was used to infiltrate the line of planned incision as well as the area of the ilioinguinal nerve. A 10 blade scalpel was used to make an 8 cm long incision along the length of the inguinal ligament. Electrocautery was used to go down to the level of the external oblique. A 15 blade scalpel used to make a small incision in the aponeurosis and then Metzenbaum scissors used to open up the external oblique aponeurosis widely. The ilioinguinal nerve was identified and carefully excised so it was entirely removed from the field. The posterior aspect of the external oblique aponeurosis was cleaned superiorly and inferiorly. The shelving edge of the inguinal ligament was identified. The spermatic cord and its surrounding tissues were identified and encircled with a maria elena drain. Attachments to cremaster were muscle were taken down using electrocautery and blunt dissection. An indirect hernia sac was identified. This was dissected away from the spermatic cord contents to the level of the peritoneum. The hernia sac was then opened noting no abdominal contents within the sac. Using 2-0 silk suture the hernia sac was ligated in a high fashion. This was then transected and passed off the field. A small cord lipoma was also identified and ligated near its base with 2-0 silk suture as well. There was also a large and thick direct hernia sac containing omentum. The defect itself was small. The sac was carefully opened and the omentum reduced. The sac was then suture-ligated with a 2-0 silk stick tie. The 2-0 silk was also used to place a U-stitch to close the small defect. The field was irrigated and dried. Using an Atrium mesh cut to size and with a keyhole, the floor of the inguinal canal was recreated. The mesh was sewn into place with 0-Ethibond in an interrupted fashion starting at the pubic tubercle. The internal ring was then recreated by sewing the flaps of the keyhole mesh together. A finger was noted to easily pass through the ring along with the spermatic cord contents. The was irrigated again. Hemostasis was obtained using electrocautery. The mesh was noted to lie without redundancy or tension in satisfactory position.The external oblique aponeurosis was then reapproximated using 3-0 vicryl in a running fashion. This also recreated the external ring. The scrotum was palpated and the testicle and spermatic cord were pulled back into their usual anatomic position. Abigail's fascia and the deep dermis were reapproximated using 2-0 vicryl in a running fashion. The skin was reapproximated using 4-0 monocryl in a running subcuticular fashion. The remainder of the local anesthesia was used over the incision site and at the level of the ilioinguinal nerve. The area was cleaned and dried. Skin glue was placed over the incision. All counts were correct at the end of the procedure. The patient was awakened and taken to the PACU in stable condition. Complications: none Condition: stable Disposition: PACU Plan for aftercare: home with
== END 2018-09-24 12:14 | disposition home or self-care (01) ==
PROVIDERS: PCP Internal Medicine; Visit Provider Surgery
PROC: (CPT 49505; principal; 2018-09-24 09:15)
DX: K40.90 Unilateral inguinal hernia, without obstruction or gangrene, not specified as recurrent (principal); G47.33 Obstructive sleep apnea (adult) (pediatric); D17.6 Benign lipomatous neoplasm of spermatic cord
CPT/HCPCS: 49505; 88302; C1781; J0690; J1100; J2405; J2704; J3010

== ENCOUNTER → 2020-02-12 08:17 | Outpatient (CLI) | payer MEDICARE, OTHER, SELFPAY ==
--- NOTE | 2020-02-12 | DI.RAD.S_ITS ---
PROCEDURE: XR ABDOMEN 1V INDICATIONS: Calculus of kidney TECHNIQUE: One view of the abdomen acquired. COMPARISON: [facility], CT, KIDNEY/ URETER/BLADDER, 08/10/2017, 7:10. CR, KUB, 01/12/2011, 10:03. FINDINGS: Surgical changes and devices: None. Bowel: Scattered small bowel and colonic gas. No dilated loops of bowel seen. Soft tissues: A small calcification in the left lateral abdomen, unchanged compared to the 2010. However, this may be too far lateral to represent a kidney stone and may be due to vascular calcification near the splenic hilum seen on remote prior CT. Visualized solid organ contours appear normal in size. Bones: No suspicious bony lesions. IMPRESSION: No convincing kidney stones. Calcification in the lateral left abdomen is felt to more likely represent a vascular calcification. If clinically indicated CT KUB could be performed for further evaluation. Nonobstructive bowel gas pattern. Dictated by: Surjit Man M.D. on 02/12/2020 at 8:59 Approved by: Surjit Man M.D. on 02/12/2020 at 9:02
[2020-02-12 16:11] LABS: Prostate Specific Antigen 5.75 ng/mL (0.10-4.00)
== END ==
PROVIDERS: PCP Internal Medicine; Referring Provider Internal Medicine; Visit Provider Urology
DX: N20.1 Calculus of ureter (principal); N20.0 Calculus of kidney; R97.20 Elevated prostate specific antigen [PSA]
CPT/HCPCS: 36415; 74018; 84153

== ENCOUNTER → 2021-03-14 12:19 | Outpatient (CLI) | payer MEDICARE, OTHER, SELFPAY ==
[2021-03-14 14:19] LABS: Prostate Specific Antigen 6.56 ng/mL (0.10-4.00)
== END ==
PROVIDERS: PCP Internal Medicine; Referring Provider Urology; Visit Provider Urology
DX: R97.20 Elevated prostate specific antigen [PSA] (principal)
CPT/HCPCS: 36415; 84153

== ENCOUNTER → 2021-03-14 12:22 | Outpatient (CLI) | payer MEDICARE, OTHER, SELFPAY ==
--- NOTE | 2021-03-14 12:24 | DI.RAD.S_ITS ---
PROCEDURE: XR ABDOMEN 1V INDICATIONS: History of kidney stones TECHNIQUE: One view of the abdomen acquired. COMPARISON: [facility], CR, XR ABDOMEN 1V, 02/12/2020, 7:30. FINDINGS: Surgical changes and devices: None. Bowel: Bowel gas pattern is normal. No specific transition point Soft tissues: No definite urolithiasis seen. Previously remarked left upper quadrant calcification unchanged probably vascular. Bones: Lateral curvature of the spine multilevel spondylosis and facet disease. Bilateral moderate hip joint degeneration. IMPRESSION: No definite radiographically visible urolithiasis. If necessary, further evaluation with CT KUB could be performed. Dictated by: Gagandeep Mccoy M.D. on 03/14/2021 at 15:07 Approved by: Gagandeep Mccoy M.D. on 03/14/2021 at 15:10
== END ==
PROVIDERS: PCP Internal Medicine; Referring Provider Urology; Visit Provider Urology
DX: Z87.442 Personal history of urinary calculi (principal); Z09 Encounter for follow-up examination after completed treatment for conditions other than malignant neoplasm; M16.0 Bilateral primary osteoarthritis of hip; R97.20 Elevated prostate specific antigen [PSA]
CPT/HCPCS: 36415; 74018; 84153

== ENCOUNTER → 2021-03-30 10:05 | Outpatient (CLI) | payer MEDICARE, OTHER, SELFPAY ==
[2021-03-30 12:00] LABS: COVID19 -Nasal RAPID Negative (Negative)
== END ==
PROVIDERS: PCP Internal Medicine; Referring Provider Specialist; Visit Provider Specialist
DX: Z01.812 Encounter for preprocedural laboratory examination (principal); Z20.822 Contact with and (suspected) exposure to COVID-19
CPT/HCPCS: 87635; C9803

== ENCOUNTER 2021-03-31 14:01 | Day surgery (SDC) | payer MEDICARE, OTHER, SELFPAY ==
[2021-03-31] MEDS: LACTATED RINGERS 1,000 ML 200 ML IV (14:48)
[2021-03-31 15:47] VITALS: BP 134/88; PULSE 64; RESP 16; TEMP 37.1; O2SAT 97; BMI 29.3
--- NOTE | 2021-03-31 15:53 | PM.HP.1 ---
History of Present Illness History of Present Illness Chief complaint: DX COLONOSCOPY Narrative: The patient is a gentleman here for a colonoscopy his last exam was 5 years ago. He has a personal history of polyps. Patient History Medical History Colon polyps Elevated prostate specific antigen (PSA) (02/01/16) Gastroesophageal reflux disease (12/30/10) H/O adenomatous polyp of colon History of renal calculi (12/30/10) Obstructive sleep apnea syndrome (12/30/10) Osteoarthritis of right elbow Scoliosis Surgical History History of lumbar fusion Hx of knee surgery Status post cervical spinal fusion Family & Social History Social History: household members spouse Tobacco & Substance use: Smoking Status Former smoker alcohol intake current alcohol intake frequency holiday/special occasion Substance Use Type does not use Meds Home Medications and Allergies Home Medications Medication Instructions Recorded Confirmed Type tamsulosin 0.4 mg capsule (Flomax) 0.8 mg PO QDAY #0 12/15/11 03/31/21 History tadalafil 5 mg tablet (Cialis) 5 mg PO ONCE PRN 10/02/17 03/31/21 History naproxen sodium 220 mg tablet 220 mg PO Q DAY PRN #0 03/03/19 03/31/21 History (Aleve) Allergies Allergy/AdvReac Type Severity Reaction Status Date / Time No Known Drug Allergies Allergy Verified 03/31/21 14:43 Review of Systems Review of Systems Narrative: No cardiac or pulmonary issues. Occasionally sees a little blood on the tissue. No black bowel movements. No seizures or blackouts. Takes medication for his prostate. Exam Vital Signs (past 8 hours): - 03/31/21 15:47 Temperature 98.7 F Pulse Rate 64 Respiratory Rate 16 Blood Pressure 134/88 Pulse Oximetry 97 Oxygen Delivery Method Room Air Narrative Exam Narrative: Pleasant cooperative patient no apparent distress. Lungs are clear to auscultation. No rales or rhonchi. Heart regular rate and rhythm no murmur gallop. Abdomen is soft nontender without mass. No obvious hernias. Patient is alert and oriented x3. Assessment & Plan Assessment and plan (1) H/O adenomatous polyp of colon: Status: Inactive Assessment & Plan narrative: Patient for screening colonoscopy in a high risk group. I have discussed the procedure and the rationale with the patient including risks of bleeding, perforation which would necessitate a major operation, failure to find remove all lesions and the potential to tattoo. They appeared to understand and wished to proceed. Time Spent With Patient Critical Care time: I spent a total of [] minutes of critical care time on this patient's care today; this time is exclusive of procedural time.
--- NOTE | 2021-03-31 16:00 | PM.PREOP ---
Pre-operative Note COVID-19 COVID-19 status: Negative Result date/Date tested (Pos, Neg/Pending): 03/30/21 Interval Note History & Physical reviewed/Exam performed by Physician: Yes Changes to H&P: No ASA Class (for procedural sedation): II
[2021-03-31] MEDS: fentaNYL 250 MCG/5 ML INJ IV (16:03)
[2021-03-31] MEDS: MIDAZOLAM 5 MG/5 ML VIAL IV (16:11)
--- NOTE | 2021-03-31 16:29 | PM.OP.COLON ---
Operative Date/Time/Diagnoses Date of procedure: 03/31/21 Time of procedure: 16:29 Pre-op diagnosis: Screening exam. Last colonoscopy 5 years ago. Patient has a personal history of polyps. Post-op diagnosis: same Procedure & Clinicians Study performed: Colonoscopy Same procedure as scheduled: Yes Indications: Screening Surgeon: Braydon Titus Procedure Notes SCOAP/Timeout: Perform Procedure in detail: The patient was placed in the left lateral decubitus position and underwent IV sedation directed by the surgeon consisting of fentanyl and Versed. Digital exam was remarkable for decreased sphincter tone. There were no palpable masses The scope was inserted and advanced through the rectum into the sigmoid, descending, transverse, and ascending colon. Stiffener was inserted and we made our way into the cecum. I noted extensive sigmoid diverticulosis as well as cecal diverticulosis. The cecum was reached identified by the ileocecal valve and the appendiceal opening. The scope was gradually brought out. No Polyps were found. The scope ultimately was retroflexed in the rectum. The appearance was remarkable for internal hemorrhoids near the anal verge with minor irritation. The scope was removed and the patient tolerated the procedure well. Scope withdrawal time: Just over 6 minutes Sedation minutes: 27 Findings: diverticulitis Specimen(s): none sent Complications: none Post-procedure Recommendations: Colonoscopy in 5 years (Due to personal history of polyps) Follow up: as needed Disposition: PACU
[2021-03-31 16:33] VITALS: BP 138/91; PULSE 63; RESP 14; TEMP 36.6; O2SAT 96
[2021-03-31 16:38] VITALS: BP 146/87; PULSE 62; PULSE 71; RESP 16; O2SAT 96; O2SAT 99
[2021-03-31 16:43] VITALS: BP 132/83; PULSE 70; RESP 14; O2SAT 99
[2021-03-31 16:49] VITALS: BP 129/97; PULSE 59; RESP 14; TEMP 36.6; O2SAT 98
== END 2021-03-31 16:55 | disposition home or self-care (01) ==
PROVIDERS: PCP Internal Medicine; Referring Provider Specialist; Visit Provider Specialist
PROC: 0DJD8ZZ Inspection of Lower Intestinal Tract, Via Natural or Artificial Opening Endoscopic (ICD-10-PCS; CPT 45378; principal; 2021-03-31 15:15)
DX: Z12.11 Encounter for screening for malignant neoplasm of colon (principal); Z86.010 Personal history of colon polyps; G47.33 Obstructive sleep apnea (adult) (pediatric); K57.30 Diverticulosis of large intestine without perforation or abscess without bleeding
CPT/HCPCS: G0105; 99152; 99153; J2250; J3010

== ENCOUNTER → 2023-06-14 16:17 | Outpatient (CLI) | payer MEDICARE, OTHER, SELFPAY ==
[2023-06-14 18:57] LABS: Prostate Specific Antigen 9.51 ng/mL (0.10-4.00)
== END ==
PROVIDERS: PCP Internal Medicine; Referring Provider Physician Assistant Medical; Visit Provider Physician Assistant Medical
DX: N40.0 Benign prostatic hyperplasia without lower urinary tract symptoms (principal); Z87.898 Personal history of other specified conditions
CPT/HCPCS: 36415; 84153

== ENCOUNTER → 2023-08-08 14:48 | Outpatient (CLI) | payer MEDICARE, OTHER, SELFPAY | PROVIDERS: PCP Internal Medicine; Referring Provider Physician Assistant Medical; Visit Provider Physician Assistant Medical | DX: R97.20 Elevated prostate specific antigen [PSA] (principal) | CPT/HCPCS: 84153; 84154 ==

== ENCOUNTER → 2023-11-21 08:48 | Outpatient (CLI) | payer MEDICARE, OTHER, SELFPAY ==
[2023-11-21 11:00] LABS: Alanine Aminotransferase 70 IU/L (<50); Albumin 3.9 g/dL (3.5-5.0); Albumin Globulin Ratio 1.4 (1.0-2.8); Alkaline Phosphatase 107 U/L (38-126); Aspartate Aminotransferase 38 IU/L (17-59); BUN Creatinine Ratio 22.9 (6-22); Bilirubin Total 1.2 mg/dL (0.2-1.3); Blood Urea Nitrogen 16 mg/dL (9-20); Calcium 8.8 mg/dL (8.4-10.2); Carbon Dioxide 27 mmol/L (22-32); Chloride 107 mmol/L (98-107); Cholesterol 166 mg/dL (140-199); Creatine Kinase 136 U/L (55-170); Estimated Glomerular Filt Rate > 60 mL/min (>60); Globulin 2.8 g/dL (1.7-4.1); Glucose 105 mg/dL (80-110); HDL Cholesterol 55 mg/dL (40-60); HEMOLYSIS < 15 (0-50); LDL Cholesterol Calculated 102 mg/dL (<100); Potassium 4.3 mmol/L (3.4-5.1); Sodium 139 mmol/L (137-145); Total Protein 6.7 g/dL (6.3-8.2); Triglycerides 46 mg/dL (35-150)
== END ==
PROVIDERS: PCP Internal Medicine; Referring Provider Internal Medicine; Visit Provider Internal Medicine
DX: G47.33 Obstructive sleep apnea (adult) (pediatric) (principal); K21.9 Gastro-esophageal reflux disease without esophagitis; E78.5 Hyperlipidemia, unspecified; M79.10 Myalgia, unspecified site; R25.2 Cramp and spasm
CPT/HCPCS: 36415; 80053; 80061; 82550; 83735

== ENCOUNTER → 2025-02-02 09:47 | Outpatient (CLI) | payer MEDICARE, OTHER, SELFPAY ==
[2025-02-02 10:17] LABS: Add Manual Diff / Slide Review NO; Hematocrit 46.7 % (41-53); Hemoglobin 15.9 g/dL (13.5-17.5); Lymphocytes Absolute Auto 2100 /uL (1100-4500); Mean Corpuscular HGB Conc 34.1 % (30-36); Mean Corpuscular Hemoglobin 30.7 PG (26-34); Mean Corpuscular Volume 89.9 fL (80-100); Platelet Count 207 X10^3/uL (150-400)
[2025-02-02 10:28] LABS: Hemoglobin A1C% w Est Avg Glu 5.6 % (4.0-6.0)
[2025-02-02 11:21] LABS: HEMOLYSIS < 15 (0-50)
[2025-02-02 11:26] LABS: Albumin 4.4 g/dL (3.5-5.0); Blood Urea Nitrogen 14 mg/dL (9-20); Calcium 9.3 mg/dL (8.4-10.2); Carbon Dioxide 25 mmol/L (22-32); Chloride 106 mmol/L (98-107); Estimated Glomerular Filt Rate > 60 mL/min (>60); Glucose 102 mg/dL (70-99); Potassium 4.7 mmol/L (3.4-5.1); Sodium 138 mmol/L (137-145)
[2025-02-02 11:44] LABS: Vitamin D 25 Hydroxy (D3) 32.1 ng/mL (30.0-100.0)
[2025-02-02 12:47] LABS: Prealbumin 21.5 mg/dL (17.6-36.0)
== END ==
PROVIDERS: Orthopaedic Surgery; PCP Internal Medicine; Referring Provider Internal Medicine; Visit Provider Social Worker
DX: Z01.818 Encounter for other preprocedural examination (principal); R73.09 Other abnormal glucose; E55.9 Vitamin D deficiency, unspecified; M16.11 Unilateral primary osteoarthritis, right hip
CPT/HCPCS: 36415; 80048; 82040; 82306; 83036; 84134; 85025

== ENCOUNTER 2025-02-06 07:47 | Day surgery (SDC) | payer MEDICARE, OTHER, SELFPAY ==
[2025-02-02 13:51] VITALS: BMI 29.3
[2025-02-06] VITALS (7 sets, daily range): BP systolic 148–176; BP diastolic 74–94; PULSE 72–95; RESP 16–22; TEMP 36.1–36.5; O2SAT 92–97; BMI 27.7
[2025-02-06] MEDS: LACTATED RINGERS 1,000 ML 42 ML IV ×2 (08:15→11:47)
[2025-02-06] MEDS: ACETAMINOPHEN 325 MG TABLET 975 MG PO (08:21)
--- NOTE | 2025-02-06 08:55 | PM.PREOP ---
Pre-operative Note Interval Note History & Physical reviewed/Exam performed by Physician: Yes Changes to H&P: No
--- NOTE | 2025-02-06 09:01 | SUR.PREOP ---
Time out done for nerve block placement to right shoulder; VSS; BP 137/94, HR 55, oxygen saturation 98% on room air. Placed on monitoring coordinator and oxygen at 2 liters via nasal cannula.
--- NOTE | 2025-02-06 09:14 | SUR.PREOP ---
Block start time [0905] . Monitoring initiated and maintained throughout procedure. Oxygen and medications given per anesthesiologist instructions. Patient remained stable throughout procedure, no adverse reactions noted. Block end time [0911].
--- NOTE | 2025-02-06 10:09 | SUR.OPER ---
Beach chair with Quiana/Dayan shoulder positioner. Lower body on padded OR bed. Head in foam padded head cradle, secured with straps. Non-operative arm secured <90 degrees abduction. Pillow under knees. Safety belt at thigh. Cloth tape over blanket over lower legs.
[2025-02-06] MEDS: SODIUM CHLORIDE IRRIG SOLUTION 3,000 ML, EPINEPHrine 3 MG IRR (10:36)
--- NOTE | 2025-02-06 12:58 | PM.OP.1 ---
Operative Date/Time/Diagnoses Date of procedure: 02/06/25 Time of procedure: 09:00 Pre-op diagnosis: Right Shoulder Rotator Cuff Tear and Biceps Tendinopathy Post-op diagnosis: same Procedure & Clinicians Procedure: Patient Name: Axel Ronquillo Date of Operation: February 06, 2025 Preoperative diagnosis: Right Shoulder Rotator Cuff Tear, Biceps Tendinopathy Procedure performed: Right Shoulder Diagnostic Arthroscopy, Rotator Cuff Repair, Open Biceps Tenodesis and labral debridement Postoperative diagnosis: Same Primary Surgeon: Tyler Agosto MD Secondary Surgeon: STAN Howard Physician Delivery Analyst was used throughout the entirety of the case. They assisted with room set up, patient positioning, draping, retraction, reduction, fixation and closure. They were essential for the success of the case. Anesthesia: General EBL: 25 ml Implants: Arthrex knotless 2.6 FiberTak that is double loaded Arthrex Proximal Biceps Tenodesis Button Indication for Surgery: Nonoperative management failed to resolve symptoms. The risks, benefits, and alternatives were discussed. Risks included pain, bleeding, infection, damage to nearby structures, lack of symptom relief, implant complications, stiffness, need for further surgeries, DVT, PE, stroke, and even . They signed a written consent form. Examination Under Anesthesia: ROM: Forward flexion 170, abduction 170 Anterior load and shift: Grade 1 Posterior load and shift: Grade 1 Inferior sulcus: Grade 1 Diagnostic Findings: Rotator interval: Significant degenerative changes Biceps tendon & SLAP: Significant degenerative changes and frayed biceps tendon. Subscapularis: Intact Rotator Cuff: Full-thickness rotator cuff tear that there was also a intrasubstance full-thickness tear. HAGL: No HAGL Labrum: Degenerative fraying Glenoid Cartilage: Intact Humeral Head Cartilage: Intact Procedure in Detail: The patient was met in the preoperative holding on the day of the procedure. Operative extremity was signed. Consent was verified. The patient desired to proceed. Regional anesthesia was obtained in the preoperative area. They were brought to the operating room and surrendered to anesthesia. Once general anesthesia was obtained they were placed in the beach chair position. All bony prominences were well-padded. They were then prepped and draped in the standard sterile fashion. A surgical timeout was held to confirm the patient procedure, identity, laterality, allergies, images, and antibiotics. All were in agreement and we proceeded. A standard diagnostic arthroscopy was performed utilizing posterior and anterior superior portal sites. The anterior superior portal site was created under direct visualization. The findings of the diagnostic arthroscopy can be found above. Upon examination of the rotator cuff, there was some mild fraying on the articular side however there was no full-thickness tear noted. Biceps tendon was cut using arthroscopic scissors and debrided back with a sucker shaver. Mini-Open Subpectoral Biceps Tenodesis: We then turned our attention to the biceps tenodesis, a 4 cm longitudinal incision was made near the axillary fold centered over the inferior border of the pectoralis major tendon. Electrocautery was used to obtain hemostasis. The fascia was opened with dissection scissors in line with the course of the neurovascular structures. Blunt digital dissection was used to identify the intertubercular groove just under the pectoralis major tendon. The long head of the biceps tendon was visualized within this interval. The short head of the biceps was retracted with my finger and the right angle was used to deliver the tendon of the long head of the biceps out of the wound. The groove was then prepared with a ward elevator. The drill for the biceps button was placed at the inferior edge of the pec major tendon within the groove. The drill was then removed and the button placed. The tendon was then reduced down on to the surface of the humerus. The suture limbs were cut and the wound was irrigated. The subcutaneous tissue was closed using interrupted 2-0 Vicryl followed by running 3-0 Monocryl in subcuticular fashion. Subacromial Decompression: The obturator was placed into the subacromial space along the underside of the acromion from the posterior portal passing lateral to the coracoacromial ligament and out the anterior incision. The crystal cannula was threaded over this and the serfas wand was placed into the cannula. The camera was inserted and the cannula was backed out until the camera and instruments were in the subacromial space. The serfas wand was used to excise tissue from the underside of the acromion and establish a small space for viewing. The leading edge of the CA ligament was released. A lateral incision was made after localization with a spinal needle. The shaver was inserted and the bursa was excised completely, taking care to excise all bursa from the anterior and lateral gutters. The rotator cuff was protected throughout. After an adequate subacromial decompression we are able to visualize the rotator cuff tear. There was an intrasubstance tear which split the supraspinatus in half. The more superior limb was retracted further medially. The inferior portion was not completely torn. This was debrided back to healthy tissue and there was a full-thickness tear that which allowed us to look inside the joint and see the articular cartilage. The shoulder was taken through a range of motion and the bursa was found to be fully excised. Rotator Cuff Repair: The rotator cuff tear was identified from the subacromial space. The frayed edges of the rotator cuff were debrided back. The new footprint was debrided of soft tissue. It was decided that we would only perform a 2 anchor medial row. First we took a luggage attached suture and passed it once through the inferior limb and then through the superior limb of the supraspinatus. This allowed us to pull tension and hold the rotator cuff reduced. We then placed 1 Arthrex knotless 2.6 FiberTak anteriorly and then a 2nd 1 posteriorly along the articular border. Using a scorpion we passed each of the 2 limbs for a total of 4 limbs through the 2 portions of the supraspinatus. We are then able to use the knotless device to pull these back down to the original footprint. This gave good compression over the rotator cuff back onto the greater tuberosity. The shoulder was taken through a range of motion which demonstrated a fully repair rotator cuff which moved continuously with the movement of the shoulder. Final images were obtained and the instruments were removed from the shoulder. The incisions were closed with 3-0 Nylon, sterile dressing and sling were applied. Postoperative Plan: Same day discharge Sling use for 6 weeks Physical Therapy consult placed Follow up with ortho in 2 weeks for suture removal and clinical examination Tyler Agosto MD Same procedure(s) as scheduled: Yes Surgeon: Tyler Agosto Assisted?: Yes Delivery Analyst: Venus Love Anesthesia Type: General Operative Notes Findings: See above Closure Type: primary Specimen(s): none sent Applied: none Estimated Blood Loss (mL): 25 Blood products transfused: none Complications: none Post-operative Condition: stable Disposition: PACU
== END 2025-02-06 14:07 | disposition home or self-care (01) ==
PROVIDERS: PCP Internal Medicine; Referring Provider Orthopaedic Surgery; Visit Provider Orthopaedic Surgery
PROC: (CPT 29827; principal; 2025-02-06 09:15)
DX: G47.33 Obstructive sleep apnea (adult) (pediatric) (principal); M75.121 Complete rotator cuff tear or rupture of right shoulder, not specified as traumatic; S43.431A Superior glenoid labrum lesion of right shoulder, initial encounter; S46.211A Strain of muscle, fascia and tendon of other parts of biceps, right arm, initial encounter; G89.18 Other acute postprocedural pain; K21.9 Gastro-esophageal reflux disease without esophagitis; Z87.891 Personal history of nicotine dependence; R33.8 Other retention of urine
CPT/HCPCS: 23430; 29827; 29826; 51701; 64450; 99283; C1713; J0165; J0689; J1100; J1885; J2405; J2704; J3010

== ENCOUNTER 2025-02-06 19:35 | Emergency (ER) | payer MEDICARE, OTHER, SELFPAY ==
[2025-02-06 19:44] VITALS: BP 161/91; PULSE 81; RESP 16; TEMP 37.1; O2SAT 94; BMI 27.7
[2025-02-06] MEDS: LIDOCAINE 2% (GLYDO) 6 ML GEL TOP (20:40)
[2025-02-06 21:17] VITALS: BP 137/92; PULSE 69; RESP 18; O2SAT 94
--- NOTE | 2025-02-06 21:26 | ED.MALEGU ---
HPI - Male Genitourinary General Chief complaint: Urogenital-Male Stated complaint: had surgery this morning cant urinate Time Seen by Provider: 02/06/25 19:55 Source: patient Mode of arrival: Ambulatory History of Present Illness HPI Narrative: 80-year-old gentleman currently on tamsulosin and tadalafil for BPH underwent right shoulder surgery today. He has a nerve block and currently pain is adequately controlled with his surgical site however he has been unable to void since leaving the surgical suite this morning. Having increasing abdominal pain. He notes that he had the same thing happened with the prior surgery at that time and in a no catheter was adequate. He comes in for assistance. No fevers, surgical concerns, palpitations, nausea or vomiting Related Data Home Medications ?Medication ?Instructions ?Recorded ?Confirmed tamsulosin 0.4 mg capsule (Flomax) 0.8 mg PO QDAY ##0 12/15/11 02/06/25 tadalafil 5 mg tablet (Cialis) 5 mg PO ONCE PRN Sexual Activity 10/02/17 02/06/25 esomeprazole magnesium 20 mg 20 mg PO DAILY 03/01/23 02/06/25 tablet,delayed release Calcium 1 tab PO DAILY 05/27/24 02/06/25 Previous Rx's ?Medication ?Instructions ?Recorded acetaminophen 500 mg tablet 1,000 mg (2 x 500 mg) PO Q8H PRN 01/29/25 pain #120 tabs docusate sodium 100 mg capsule 100 mg PO BID #20 caps 01/29/25 (Colace) ondansetron 4 mg disintegrating 4 mg PO Q8H PRN nausea and 01/29/25 tablet vomiting #14 tabs oxycodone 5 mg capsule 5 mg PO Q4H PRN pain #40 caps 01/29/25 Allergies Allergy/AdvReac Type Severity Reaction Status Date / Time No Known Drug Allergies Allergy Verified 02/06/25 19:44 Review of Systems Review of Systems Narrative: Pertinent positive and negative findings as per HPI Patient History Medical History H/O adenomatous polyp of colon Colon polyps Scoliosis Elevated prostate specific antigen (PSA) (02/01/16) Obstructive sleep apnea syndrome (12/30/10) History of renal calculi (12/30/10) Gastroesophageal reflux disease (12/30/10) Osteoarthritis of right elbow Surgical History Hx of knee surgery History of lumbar fusion Status post cervical spinal fusion Social History marital status: household members: spouse occupational status: previously employed alcohol intake: current substance use type: does not use Smoking Status: Never smoker alcohol intake frequency: holidays/special occasions only Exam Initial Vital Signs Initial Vital Signs: Vital Signs Temperature 98.7 F 02/06/25 19:44 Pulse Rate 81 02/06/25 19:44 Respiratory Rate 16 02/06/25 19:44 Blood Pressure 161/91 H 02/06/25 19:44 Pulse Oximetry 94 02/06/25 19:44 Oxygen Delivery Method Room Air 02/06/25 19:44 General: Alert appropriate in no acute distress Respiratory: Able to speak in full sentences, no obvious respiratory distress Skin: No obvious rashes, warm and dry Neurologic: Grossly intact no obvious asymmetries or abnormalities Psych: appropriate insight and affect, cooperative Course Orders Ordered: Discontinued Medications Lidocaine HCl (Lidocaine 2% (Glydo) 6 Ml Gel) 6 ml TOP NOW ONE Stop: 02/06/25 20:23 Last Admin: 02/06/25 20:40 Dose: 6 ml Documented By: HNG Vital Signs Vital signs: Vital Signs - 8 hr 02/06/25 19:44 02/06/25 21:17 Temperature 98.7 F Pulse Rate 81 69 Respiratory Rate 16 18 Blood Pressure 161/91 H 137/92 H Pulse Oximetry 94 94 Oxygen Delivery Method Room Air Room Air MDM - Male Genitourinary MDM Narrative Medical decision making narrative: 80-year-old gentleman with a history of BPH had shoulder surgery this morning and acute urinary retention this evening. With shared decision-making we opted to place a Sanchez catheter and I suggested that he leave it in for at least 3 days while he continues with his tamsulosin and tadalafil. He was given a leg bag, instructions on how to change bags and empty bags. He was also instructed on how to remove his Sanchez catheter safely. Suggested that he try removing it Sunday morning and if he is unable to void by Sunday afternoon he needs to be seen again. He found this compromise quite acceptable. 750 cc of urine drained with initial placement of Sanchez catheter and he is feeling much better at time of discharge. There was no indication for further workup or hospitalization and he is safely discharge Discharge Plan Departure Patient Disposition: Home Clinical Impression: Acute urinary retention Instructions: How to Care for Your Sanchez Catheter -- Male Activity Restrictions/Additional Instructions: Thank you for coming in today. It is not uncommon to have acute urinary retention after surgery. We have placed a Sanchez catheter, you have a leg bag as well as a larger bag to use in the evening if you prefer. I would recommend that you continue your current dose of tamsulosin as well as tadalafil. I would also recommend leaving the Sanchez catheter in at least 3 days. You are welcome to remove it at home, if you do so I would suggest waiting till Sunday and if you are unable to void by Sunday afternoon you will need to be seen either by your primary care doctor, your urologist or come back to the emergency department for Sanchez catheter replacement. If you find that you are getting worse or develop any new symptoms, please feel free to return to the emergency department for further evaluation. Prescriptions: No Action tamsulosin [Flomax] 0.4 MG capsule,extended release 24hr 0.8 mg PO QDAY Qty: 0 esomeprazole magnesium 20 mg tablet,delayed release (DR/EC) 20 mg PO DAILY tadalafil [Cialis] 5 mg tablet 5 mg PO ONCE PRN (Reason: Sexual Activity) Calcium 1,000 mg 1 tab PO DAILY acetaminophen 500 mg tablet 1,000 mg PO Q8H PRN (Reason: pain) Qty: 120 0RF oxycodone 5 mg capsule 5 mg PO Q4H PRN (Reason: pain) Qty: 40 0RF docusate sodium [Colace] 100 mg capsule 100 mg PO BID Qty: 20 0RF ondansetron 4 mg tablet,disintegrating 4 mg PO Q8H PRN (Reason: nausea and vomiting) Qty: 14 0RF Referrals: Kavin Seymour MD [Primary Care Provider, Internal Medicine] Stand Alone Forms: Patient Portal/API
== END 2025-02-06 21:42 | disposition home or self-care (01) ==
PROVIDERS: Emergency Provider Emergency Medicine; PCP Internal Medicine
DX: R33.8 Other retention of urine (principal)
CPT/HCPCS: 99283

== ENCOUNTER → 2025-02-19 10:15 | Outpatient (CLI) | payer MEDICARE, OTHER, SELFPAY ==
[2025-02-19 13:21] LABS: Prostate Specific Antigen 11.4 ng/mL (0.10-4.00)
== END ==
PROVIDERS: PCP Internal Medicine; Referring Provider Urology; Visit Provider Urology
DX: R97.20 Elevated prostate specific antigen [PSA] (principal); N40.1 Benign prostatic hyperplasia with lower urinary tract symptoms; Z68.27 Body mass index [BMI] 27.0-27.9, adult
CPT/HCPCS: 36415; 51798; 81002; 84153; 99214

== ENCOUNTER → 2025-03-13 07:05 | Outpatient (CLI) | payer MEDICARE, OTHER, SELFPAY ==
--- NOTE | 2025-03-13 07:08 | DI.MRI.S_ITS ---
PROCEDURE: MR PELVIC PROSTATE PROTOCOL INDICATIONS: Elevated PSA TECHNIQUE: Coronal HASTE, axial T1 FSE with fat saturation, 3-plane nonbreath-hold T2 FSE. After the administration of contrast, dynamic axial, delayed axial and coronal VIBE or 2-D FLASH with fat saturation through the pelvis. Diffusion weighted imaging and ADC was performed. COMPARISON: None. FINDINGS: Image quality: Diffusion weighted and dynamic contrast enhanced images are diagnostic. Prostate: Gland size is 6.8 x 4.5 x 4.4 cm; ellipsoid gland volume is 70 mL. PSA density is borderline elevated at 0.163 Transitional zone heterogenous nodules are present, either well encapsulated or mostly encapsulated, compatible with PI-RADS 1 or 2 likely BPH nodules. 1.2 x 1.1 x 1.1 cm lesion is seen in the left mid gland to apex posterior peripheral zone. DCE positive (05/07). DWI score 4 (25/, 24/). T2 score 4. PI-RADS 4. Seminal vesicles appear clear. No measurable extracapsular disease. At the right far apex peripheral zone, there is a 0.7 x 0.7 cm lesion (4/21, 6/10). DWI score 4. T2 score 3. DCE negative. PI-RADS 4. ( Genitourinary system: Trabeculated urinary bladder usually due to chronic obstruction Bowel and peritoneum: No bowel obstruction. No drainable ascites Colonic diverticulosis. Nodes and vessels: No aneurysmal artery identified. No enlarged lymph nodes by size criteria Soft tissues: Unremarkable pelvic wall Bones: No aggressive appearing osseous abnormality IMPRESSION: PI-RADS 4 lesions bilaterally. No measurable extracapsular disease or seminal vesicle involvement. No pelvic lymphadenopathy by size criteria. No aggressive osseous abnormality. Dictated by: Jose Raul Heart M.D. on 03/13/2025 at 9:29 Approved by: Jose Raul Heart M.D. on 03/13/2025 at 9:34
== END ==
LOC: MRI 07:06
PROVIDERS: PCP Internal Medicine; Referring Provider Internal Medicine; Visit Provider Urology
DX: N42.9 Disorder of prostate, unspecified (principal); N32.89 Other specified disorders of bladder; R97.20 Elevated prostate specific antigen [PSA]
CPT/HCPCS: 72197; A9579